=== PATIENT | male | born 1945 | race Caucasian/White ===

== ENCOUNTER 2022-06-14 14:20 | Outpatient (CLI) | payer MEDICARE, OTHER ==
--- NOTE | 2022-06-14 16:13 | XRAY Report ---
PROCEDURE: Lumbar Spine Complete INDICATIONS: L SIDE SCIATICA AND LOW BACK PX TECHNIQUE: 5 views of the lumbar spine were acquired. COMPARISON: None. FINDINGS: Bones: 5 [id number] vertebrae are present. There is trace retrolisthesis of L2 on L3. Multilev el moderate to severe degenerative disc space narrowing is present most severe at L5-S1. Moderate to severe foraminal narrowing is present L5-S1, moderate L2-3. No vertebral body compression fractures. No suspicious bony lesions. Soft tissues: Overlying bowel gas pattern is normal. No suspicious soft tissue calcifications. IMPRESSION: Degenerative changes most severe at L5-S1. Reviewed by: Daja Arthur MD on 06/14/2022 4:11 PM PST Approved by: Daja Arthur MD on 06/14/2022 4:11 PM PST Station ID: [id number]
== END 2022-06-14 14:21 | disposition home or self-care (01) ==
LOC: DI.N 14:20
PROVIDERS: ATTEND Family Medicine
DX: M51.17 Intervertebral disc disorders with radiculopathy, lumbosacral region (principal); M48.07 Spinal stenosis, lumbosacral region; M48.061 Spinal stenosis, lumbar region without neurogenic claudication

== ENCOUNTER 2022-07-19 13:53 | Outpatient (CLI) | payer MEDICARE, OTHER ==
--- NOTE | 2022-07-19 17:37 | XRAY Report ---
PROCEDURE: Cervical Spine Complete INDICATIONS: NECK PX TECHNIQUE: 5 views of the cervical spine acquired, including bilateral oblique views. COMPARISON: None. FINDINGS: Bones: No fractures or dislocations to the vertebra level. There is moderate to severe disc space narrowing seen at C3-C4, with moderate disc space narrowing at C4-C5. Moderate severe disc space narrowing seen at C5-C6, C6-C7, and C7-T1. Endplate irregularity a nd sclerosis are seen, which are worst at the C5-C6 level. At least moderate neuroforaminal narrowing can be seen practically every cervical level. There is overall straightening of the normal cervical lordosis. Soft tissues: No prevertebral soft tissue swelling. The visualized pulmonary apices are unremarkab le. IMPRESSION: Prominent cervical spine degenerative changes are seen, which are worst inferiorly. If it would be helpful for clinical management decision making, please consider a dedicated cervical spine MRI for further evaluation (assuming that there is no contraindication). Reviewed by: Regino Nina MD on 07/19/2022 4:36 PM [facility] Approved by: Regino Nina MD on 07/19/2022 4:36 PM [facility] Station ID: [id number]
== END 2022-07-19 13:54 | disposition home or self-care (01) ==
LOC: DI.N 13:53
PROVIDERS: ATTEND Family Medicine
DX: M47.22 Other spondylosis with radiculopathy, cervical region (principal)

== ENCOUNTER 2023-04-26 13:52 | Outpatient (CLI) | payer OTHER ==
--- NOTE | 2023-04-26 17:08 | Ultrasound Report ---
PROCEDURE: Pelvic Limited or F/U INDICATIONS: RT INGUINAL HERNIA TECHNIQUE: Real-time transabdominal scanning was performed of the right groin, with image documentation. COMPARISON: None. FINDINGS: Right inguinal hernia is present. The hernia neck measures proximally 1.1 cm. There is bowel within t he hernia sac. The hernia is partially reducible. Report of hernia repair with mesh. IMPRESSION: Right inguinal hernia containing bowel. Reviewed by: Jones Gonzalez MD on 04/26/2023 5:06 PM PDT Approved by: Jones Gonzalez MD on 04/26/2023 5:06 PM PDT Station ID: [id number]
== END 2023-04-26 13:53 | disposition home or self-care (01) ==
LOC: DI 13:52
PROVIDERS: ATTEND Registered Nurse
DX: K40.90 Unilateral inguinal hernia, without obstruction or gangrene, not specified as recurrent (principal)